=== PATIENT | male | born 1980 | race Two or more races ===

== ENCOUNTER 2020-06-14 11:28 | Inpatient (IN) | payer MEDICAID, OTHER ==
[~2020-06-14] VITALS: Ht 182.9 cm; Wt 88.5 kg
[~2020-06-14 11:28] MED LIST: KEPPRA; OXYCODONE
[2020-06-14] MEDS ORDERED: methylPREDNISolone SOD SUCC 125 MG/2 ML VL IV ONE (12:00)
[2020-06-14 14:03] LABS: Basophils # (auto) 0 10 ^3/uL (0-0.2); Basophils % (auto) 0.3 % (0.0-2.0); Eosinophils # (auto) 0.1 10 ^3/uL (0-0.8); Eosinophils % (auto) 0.5 % (0.0-7.0); Hematocrit 45.9 % (41.0-53.0); Hemoglobin 15.5 g/dL (13.5-17.5); Lymphocytes # (auto) 1.2 10 ^3/uL (0.4-5.4); Lymphocytes % (auto) 10.3 % (10.0-50.0); Mean Corpuscular Hemoglobin 32.7 pg (28.0-32.0); Mean Corpuscular Hgb Conc. 33.7 g/dL (32.0-36.0); Monocytes # (auto) 0.7 10 ^3/uL (0-1.3); Monocytes % (auto) 6.4 % (0.0-12.0); Neutrophils # (auto) 9.5 10 ^3/uL (1.6-8.6); Neutrophils % (auto) 82.5 % (37.0-80.0); Nucleated Red Blood Cells % 0.1 %; Platelet Count (auto) 169 10^3/uL (140-450); Red Blood Cells 4.73 10^6/uL (4.5-5.90); Red Cell Distribution Width 13.3 % (11.8-14.3); White Blood Cell 11.5 10^3/uL (4.4-10.8)
[2020-06-14 14:30] LABS: Alanine Aminotransferase 38 U/L (16-61); Albumin 4.1 g/dL (3.4-5.0); Anion Gap 5 (5-15); Aspartate Aminotransferase 20 U/L (15-37); BUN/Creatinine Ratio 22.8; Blood Urea Nitrogen 23 mg/dL (7-18); Calcium 9.1 mg/dL (8.5-10.1); Carbon Dioxide 32 mmol/L (21-32); Chloride 98 mmol/L (98-107); GFR African American 104 mL/min; GFR Non-African American 86 mL/min; Glucose 99 mg/dL (74-106); Lactate Dehydrogenase 400 U/L (87-241); Magnesium 2.6 mg/dL (1.6-2.6); Sodium 135 mmol/L (136-145)
[2020-06-14 14:44] LABS: Alkaline Phosphatase 87 U/L (45-117); Bilirubin, Total 0.5 mg/dL (0.2-1.0); Total Protein 8.5 g/dL (6.4-8.2)
[2020-06-14] MEDS ORDERED: ACETAMINOPHEN 500 MG TAB PO PRN (14:45)
[2020-06-14] MEDS ORDERED: LORazepam 0.5 MG TAB PO PRN (14:45)
[2020-06-14] MEDS ORDERED: DOCUSATE SOD 100 MG CAP PO PRN (14:45)
[2020-06-14] MEDS ORDERED: ONDANSETRON HCL 4 MG/2 ML VIAL IV PRN (14:45)
[2020-06-14] MEDS ORDERED: MORPHINE SULF INJ 2 MG/ML SYRINGE 1ML IV PRN (14:45)
[2020-06-14] MEDS ORDERED: TEMAZEPAM 15 MG CAP PO PRN (14:45)
[2020-06-14] MEDS ORDERED: INFLUENZA QUAD 2020-2021 0.5 ML SYRG IM ONE (15:26)
[2020-06-14] MEDS ORDERED: ALBUTEROL SULF HFA 90MCG INH 200DOSE IN SCH (22:00)
[2020-06-14] MEDS: DOXYCYCLINE 100 MG TAB/CAP PO SCH (23:21)
[2020-06-14] MEDS: SODIUM CHLORIDE 0.9% 1,000 ML IV SCH (23:21)
[2020-06-14] MEDS: HYDROcodone-ACET 5/325MG TAB PO PRN (23:23)
[2020-06-15] MEDS: SODIUM CHLORIDE 0.9% 1,000 ML IV SCH (07:25)
[2020-06-15] MEDS: HYDROcodone-ACET 5/325MG TAB PO PRN (08:34)
[2020-06-15] MEDS: DOXYCYCLINE 100 MG TAB/CAP PO SCH (09:27)
[2020-06-15] MEDS ORDERED: ASCORBIC ACID 1,000 MG TAB PO SCH (10:00)
[2020-06-15] MEDS ORDERED: ZINC SULFATE 220mg CAP or TAB PO SCH (10:00)
[2020-06-15] MEDS ORDERED: ENOXAPARIN SOD 40 MG/0.4 ML SYRINGE SC SCH (10:00)
[2020-06-15 10:37] LABS: Basophils # (auto) 0 10 ^3/uL (0-0.2); Basophils % (auto) 0.2 % (0.0-2.0); Eosinophils # (auto) 0 10 ^3/uL (0-0.8); Eosinophils % (auto) 0.3 % (0.0-7.0); Hematocrit 35.6 % (41.0-53.0); Lymphocytes # (auto) 1.8 10 ^3/uL (0.4-5.4); Lymphocytes % (auto) 19.1 % (10.0-50.0); Mean Corpuscular Hemoglobin 32.8 pg (28.0-32.0); Mean Corpuscular Hgb Conc. 33.7 g/dL (32.0-36.0); Mean Corpuscular Volume 97.2 fL (80.0-100.0); Monocytes # (auto) 1.4 10 ^3/uL (0-1.3); Monocytes % (auto) 15.5 % (0.0-12.0); Neutrophils % (auto) 64.9 % (37.0-80.0); Platelet Count (auto) 146 10^3/uL (140-450); Red Blood Cells 3.66 10^6/uL (4.5-5.90); White Blood Cell 9.2 10^3/uL (4.4-10.8)
[2020-06-15 11:45] VITALS: BP 102/62
[2020-06-15 12:18] LABS: BUN/Creatinine Ratio 38.5; Bilirubin, Total 0.3 mg/dL (0.2-1.0); Calcium 8.3 mg/dL (8.5-10.1); Potassium 3.8 mmol/L (3.5-5.1); Total Protein 6.4 g/dL (6.4-8.2)
[2020-06-15 14:03] LABS: Cholesterol 112 mg/dL (< 200)
[2020-06-15 14:04] LABS: HDL Cholesterol 48 mg/dL (40-59); LDL Cholesterol 63 mg/dL (< 100); Triglycerides 105 mg/dL (< 150)
== END 2020-06-15 14:02 | disposition home or self-care (01) | DRG 140 ==
LOC: ER 11:28 → EDBD 11:28 → TELE 14:49 → UNDODEPER 06-15 13:55 → TELE 06-15 14:08
PROVIDERS: ADMIT Hospitalist; ATTEND Internal Medicine
DX: J44.1 Chronic obstructive pulmonary disease with (acute) exacerbation (principal); J84.10 Pulmonary fibrosis, unspecified; C85.90 Non-Hodgkin lymphoma, unspecified, unspecified site; I11.0 Hypertensive heart disease with heart failure; I50.9 Heart failure, unspecified; Z20.828 Contact with and (suspected) exposure to other viral communicable diseases; J90 Pleural effusion, not elsewhere classified; G40.909 Epilepsy, unspecified, not intractable, without status epilepticus; J98.11 Atelectasis; Z88.6 Allergy status to analgesic agent; Z88.8 Allergy status to other drugs, medicaments and biological substances; Z80.9 Family history of malignant neoplasm, unspecified; Z83.3 Family history of diabetes mellitus
CPT/HCPCS: 36415; 71045; 80053; 80061; 82728; 83615; 83735; 83880; 84484; 85025; 85379; 86141; 87426; 96374; G0378

== ENCOUNTER 2020-06-19 17:54 | Inpatient (IN) | payer MEDICAID ==
[~2020-06-19] VITALS: Ht 172.7 cm; Wt 88.0 kg
[2020-06-19 22:08] LABS: Basophils # (auto) 0 10 ^3/uL (0-0.2); Basophils % (auto) 0.2 % (0.0-2.0); Eosinophils # (auto) 0 10 ^3/uL (0-0.8); Hematocrit 41.7 % (41.0-53.0); Hemoglobin 14.1 g/dL (13.5-17.5); Lymphocytes # (auto) 0.6 10 ^3/uL (0.4-5.4); Lymphocytes % (auto) 5.6 % (10.0-50.0); Mean Corpuscular Hemoglobin 32.7 pg (28.0-32.0); Mean Corpuscular Hgb Conc. 33.7 g/dL (32.0-36.0); Monocytes # (auto) 0.2 10 ^3/uL (0-1.3); Monocytes % (auto) 2.3 % (0.0-12.0); Neutrophils # (auto) 9.8 10 ^3/uL (1.6-8.6); Neutrophils % (auto) 91.9 % (37.0-80.0); Nucleated Red Blood Cells % 0.1 %; Platelet Count (auto) 224 10^3/uL (140-450); Red Cell Distribution Width 13.3 % (11.8-14.3); White Blood Cell 10.6 10^3/uL (4.4-10.8)
[2020-06-19 22:25] LABS: Alanine Aminotransferase 29 U/L (16-61); Albumin 3.7 g/dL (3.4-5.0); Anion Gap 7 (5-15); Blood Urea Nitrogen 26 mg/dL (7-18); Carbon Dioxide 28 mmol/L (21-32); Chloride 103 mmol/L (98-107); Glucose 145 mg/dL (74-106); Potassium 4.2 mmol/L (3.5-5.1); Sodium 138 mmol/L (136-145)
[2020-06-19 22:30] LABS: Alkaline Phosphatase 65 U/L (45-117); Aspartate Aminotransferase 13 U/L (15-37); BUN/Creatinine Ratio 32.9; Bilirubin, Total 0.4 mg/dL (0.2-1.0); GFR African American 138 mL/min; GFR Non-African American 114 mL/min; Total Protein 7.6 g/dL (6.4-8.2)
[2020-06-20] MEDS ORDERED: ACETAMINOPHEN 325 MG TAB PO PRN (01:45)
[2020-06-20] MEDS ORDERED: HYDROcodone-ACET 5/325MG TAB PO PRN (01:45)
[2020-06-20] MEDS ORDERED: ONDANSETRON HCL 4 MG/2 ML VIAL IV PRN (01:45)
[2020-06-20] MEDS ORDERED: DOCUSATE SOD 100 MG CAP PO PRN (01:45)
[2020-06-20] MEDS ORDERED: MORPHINE SULF INJ 2 MG/ML SYRINGE 1ML IV PRN (01:45)
[2020-06-20] MEDS ORDERED: NITROGLYCERIN 0.4 MG SL TAB SL PRN (01:45)
[2020-06-20 02:27] LABS: Basophils # (auto) 0 10 ^3/uL (0-0.2); Basophils % (auto) 0.1 % (0.0-2.0); Eosinophils # (auto) 0 10 ^3/uL (0-0.8); Hematocrit 41.7 % (41.0-53.0); Hemoglobin 13.8 g/dL (13.5-17.5); Lymphocytes # (auto) 1.4 10 ^3/uL (0.4-5.4); Lymphocytes % (auto) 12.2 % (10.0-50.0); Mean Corpuscular Hemoglobin 32.3 pg (28.0-32.0); Mean Corpuscular Volume 97.7 fL (80.0-100.0); Monocytes # (auto) 0.6 10 ^3/uL (0-1.3); Monocytes % (auto) 5.6 % (0.0-12.0); Neutrophils # (auto) 9.3 10 ^3/uL (1.6-8.6); Neutrophils % (auto) 82.1 % (37.0-80.0); Platelet Count (auto) 230 10^3/uL (140-450); Red Blood Cells 4.27 10^6/uL (4.5-5.90); Red Cell Distribution Width 13.6 % (11.8-14.3); White Blood Cell 11.3 10^3/uL (4.4-10.8)
[2020-06-20 02:42] LABS: Albumin 3.6 g/dL (3.4-5.0); BUN/Creatinine Ratio 28.6; Calcium 8.9 mg/dL (8.5-10.1); Potassium 4.1 mmol/L (3.5-5.1)
[2020-06-20 02:45] LABS: Bilirubin, Total 0.4 mg/dL (0.2-1.0); Total Protein 7.6 g/dL (6.4-8.2)
[2020-06-20] MEDS: SODIUM CHLOR 0.9% PF (SALINE LOCK) 10ML VIAL/SYR IV SCH ×2 (06:00→14:04)
--- NOTE | 2020-06-20 06:50 | NUR ---
Telemetry admit from ER SUNNY GARZA JR admitted to Telemetry unit after SBAR received. Patient oriented to ANDRA FARRELL, RN primary RN, unit, room, bed, and unit policies regarding patient care and visiting hours. Patient now on continuous telemetry monitoring, tele box # [id number] and telemetry reading on arrival to unit is NSR HR 70. Patient placed on bedside oxygen, weighed by bedscale and encouraged to call if they need something. All questions and concerns addressed, patient verbalized understanding.
--- NOTE | 2020-06-20 07:30 | NUR ---
SZ. PRECAUTIONS IN PLACE.
[2020-06-20 09:00] VITALS: BP 117/64
[2020-06-20] MEDS: ENOXAPARIN SOD 40 MG/0.4 ML SYRINGE SC SCH (11:25)
[2020-06-20] MEDS: ASCORBIC ACID 500 MG TAB PO SCH ×2 (11:25→22:52)
[2020-06-20] MEDS: FAMOTIDINE 20 MG TAB PO SCH ×2 (11:26→22:51)
[2020-06-20] MEDS: MULTIPLE VITAMIN TAB PO SCH (11:26)
[2020-06-20] MEDS: levETIRAcetam 500 MG TAB PO SCH ×2 (11:26→22:51)
[2020-06-20] MEDS: ZINC SULFATE 220mg CAP or TAB PO SCH (11:26)
[2020-06-20] MEDS ORDERED: predniSONE 20 MG TAB PO ONE (11:30)
[2020-06-20] MEDS ORDERED: MOME200A INH (11:46)
[2020-06-20] MEDS ORDERED: SACU1TAB PO (11:46)
[2020-06-20] MEDS ORDERED: PRED20TA2 PO (11:46)
[2020-06-20] MEDS ORDERED: MORP15TA PO (11:46)
[2020-06-20] MEDS ORDERED: METO25TA93 PO (11:46)
[2020-06-20] MEDS ORDERED: FAMO-12 PO (11:46)
[2020-06-20] MEDS ORDERED: QUET100T46 PO (11:46)
[2020-06-20] MEDS ORDERED: LEVAAER IN (11:46)
[2020-06-20] MEDS ORDERED: IVAB1TAB2 PO (11:46)
[2020-06-20] MEDS ORDERED: TIOTCAP IN (11:46)
[2020-06-20] MEDS ORDERED: DOCU100T15 PO (11:46)
[2020-06-20] MEDS ORDERED: MONT10TA34 PO (11:46)
[2020-06-20] MEDS ORDERED: DIPH50CA31 PO (11:46)
[2020-06-20] MEDS ORDERED: MIRT1TAB38 PO (11:46)
[2020-06-20] MEDS ORDERED: MYCO500T PO (11:46)
[2020-06-20] MEDS ORDERED: KEP500T PO (11:46)
[2020-06-20] MEDS ORDERED: PANT1INJ3 PO (11:46)
[2020-06-20] MEDS: MORPHINE SULFATE 4 MG/ML SYR/VIAL IV PRN ×2 (11:59→18:33)
[2020-06-20 12:44] VITALS: BP 111/66
[2020-06-20 12:50] VITALS: BP 103/60
[2020-06-20 16:39] VITALS: BP 109/65
--- NOTE | 2020-06-20 17:22 | NUR ---
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
--- NOTE | 2020-06-20 19:40 | NUR ---
Opening Shift Note Assumed care of patient. Patient is awake, alert, and oriented X 4. No S/S of distress noted. respirations are regular and non-labored. Pt is on 3 LPM NC. Denies pain at this time. Bed in lowest locked position, bed rails up X 2, call light is within reach. Pt instructed on POC and to call for assistance as needed. Will continue to monitor for changes Q1hr and PRN.
[2020-06-20 20:00] VITALS: BP 106/63
[2020-06-20 22:00] VITALS: BP 102/62
[2020-06-21 05:00] VITALS: BP 90/58
[2020-06-21] MEDS: SODIUM CHLOR 0.9% PF (SALINE LOCK) 10ML VIAL/SYR IV SCH ×3 (05:31→13:50)
[2020-06-21] MEDS: MORPHINE SULFATE 4 MG/ML SYR/VIAL IV PRN ×2 (05:37→14:36)
--- NOTE | 2020-06-21 07:30 | NUR ---
Opening Shift Note RECEIVED REPORT FROM NOC RN. Assumed care of patient, awake and alert. PATIENT ON OXYGEN AT 3 LPM VIA NASAL CANNULA WITH no S/S of distress/SOB or pain. BED IN LOWEST, LOCKED POSITION WITH SIDERAILS UP x2 AND CALL LIGHT WITHIN REACH. Instructed on POC and to call for assist PRN, will continue to monitor for changes Q1hr and PRN.
[2020-06-21 09:00] VITALS: BP 106/64
[2020-06-21 09:22] LABS: Hematocrit 39.9 % (41.0-53.0); Hemoglobin 13.3 g/dL (13.5-17.5); Mean Corpuscular Hemoglobin 32.4 pg (28.0-32.0); Mean Corpuscular Hgb Conc. 33.2 g/dL (32.0-36.0); Mean Corpuscular Volume 97.4 fL (80.0-100.0); Platelet Count (auto) 207 10^3/uL (140-450); Red Blood Cells 4.09 10^6/uL (4.5-5.90); Red Cell Distribution Width 13.3 % (11.8-14.3); White Blood Cell 9.3 10^3/uL (4.4-10.8)
[2020-06-21 09:25] LABS: Albumin 3.3 g/dL (3.4-5.0); BUN/Creatinine Ratio 42.3; Calcium 8.7 mg/dL (8.5-10.1); Potassium 3.5 mmol/L (3.5-5.1); Total Protein 6.9 g/dL (6.4-8.2)
[2020-06-21 09:27] LABS: Bilirubin, Total 0.4 mg/dL (0.2-1.0)
[2020-06-21 09:38] LABS: Band Neutrophils % (manual) 0; Basophils % (manual) 0 (0.0-2.0); Blast Cells 0; Eosinophils % (manual) 0 (0-7); Promyelocytes % 0; Reactive Lymphocytes 0
[2020-06-21] MEDS ORDERED: predniSONE 20 MG TAB PO SCH (10:00)
--- NOTE | 2020-06-21 10:19 | NUR ---
I faxed home oxygen order to [facility].
[2020-06-21 10:22] LABS: Lymphocytes % (manual) 20 (10.0-50.0); Metamyelocytes % 2; Monocytes % (manual) 11 (0-12); Myelocytes % 3
[2020-06-21] MEDS: ZINC SULFATE 220mg CAP or TAB PO SCH (10:30)
[2020-06-21] MEDS: FAMOTIDINE 20 MG TAB PO SCH (10:31)
[2020-06-21] MEDS: ASCORBIC ACID 500 MG TAB PO SCH (10:31)
[2020-06-21] MEDS: ENOXAPARIN SOD 40 MG/0.4 ML SYRINGE SC SCH (10:31)
[2020-06-21] MEDS: MULTIPLE VITAMIN TAB PO SCH (10:31)
[2020-06-21] MEDS: levETIRAcetam 500 MG TAB PO SCH (10:31)
--- NOTE | 2020-06-21 11:35 | NUR ---
I called [facility] [phone] and spoke with Kaye regarding home oxygen, she will have someone call me back.
--- NOTE | 2020-06-21 11:40 | NUR ---
I received a call from Shree at [facility]-he said they have received the order and he will call me back with an ETA.
--- NOTE | 2020-06-21 11:51 | NUR ---
I received a call from Shree at [facility] regarding patient's insurance-I let him know that patient has [id number] face sheet per his request. Per Shree they do cover oxygen for [facility] patients.
--- NOTE | 2020-06-21 13:21 | NUR ---
I called Shree at [facility] regarding home oxygen, he said they are unable to verify patient's insurance because the [facility] website is down. He is going to call patient's family to see if they have a credit card that can be put on file until insurance can be verified tomorrow-otherwise they can not provide the home oxygen today.
--- NOTE | 2020-06-21 13:51 | NUR ---
I received a call from Shree at [facility], portable oxygen tank will be here in about 45 minutes-I relayed this information to nurse Norma.
--- NOTE | 2020-06-21 16:07 | NUR ---
OXYGEN HAS BEEN DELIVERED TO BEDSIDE. IV REMOVED. TELE BOX 27 SENT BACK TO MONITOR TECHS.
--- NOTE | 2020-06-21 16:20 | NUR ---
Discharge instructions given as ordered. Encourage to follow up with PMD as instructed. All questions and concerns addressed. Patient verbalized understanding. Medication reconciliation form completed and copy given to patient. IV removed with catheter intact, pressure dressing applied. Telemetry unit returned to ICU. Patient taken to vehicle via wheelchair with all personal belongings, accompanied by staff. No distress noted at time of departure.
== END 2020-06-21 16:20 | disposition home or self-care (01) | DRG 142 ==
LOC: ER 17:54 → EDBD 17:54 → TELE 17:55 → TELE-CENTR 06-20 06:50
PROVIDERS: ADMIT Nurse Practitioner Family; ATTEND Nurse Practitioner Family
DX: J84.10 Pulmonary fibrosis, unspecified (principal); J96.11 Chronic respiratory failure with hypoxia; I11.0 Hypertensive heart disease with heart failure; I50.9 Heart failure, unspecified; J44.1 Chronic obstructive pulmonary disease with (acute) exacerbation; G40.909 Epilepsy, unspecified, not intractable, without status epilepticus; Z20.828 Contact with and (suspected) exposure to other viral communicable diseases; Z80.9 Family history of malignant neoplasm, unspecified; Z83.3 Family history of diabetes mellitus; Z94.81 Bone marrow transplant status; Z99.81 Dependence on supplemental oxygen
CPT/HCPCS: 36415; 36600; 71045; 71250; 80053; 82805; 83036; 84484; 85007; 85025; 85027; 87081; 87426; G0378

== ENCOUNTER → 2020-06-26 | Emergency (ER) | payer MEDICAID ==
[~2020-06-26] VITALS: Ht 175.3 cm; Wt 79.4 kg
[~2020-06-26] MED LIST changes: +DIPH50CA31 PO; +DOCU100T15 PO; +DOXYCYCLINE 100MG/250ML 250 ML IV ONE; +DexAMETHasone SOD PHOS 10MG/1ML VIAL INJ IV ONE; +FAMO-12 PO; +IVAB1TAB2 PO; +KEP500T PO; +LEVAAER IN; +METO25TA93 PO; +MIRT1TAB38 PO; +MOME200A INH; +MONT10TA34 PO; +MORP15TA PO; +MORPHINE SULF INJ 2 MG/ML SYRINGE 1ML IV ONE; +MORPHINE SULF INJ 2 MG/ML SYRINGE 1ML ONE; +MYCO500T PO; +ONDANSETRON HCL 4 MG/2 ML VIAL IV ONE; +ONDANSETRON HCL 4 MG/2 ML VIAL ONE; +PANT1INJ3 PO; +POTASSIUM CHLORIDE 60 MEQ, LIDOCAINE 1% (LOCAL ANESTH.) 6 ML in SODIUM CHL 0.9% 500 ML IV ONE; +PRED20TA2 PO; +QUET100T46 PO; +SACU1TAB PO; +TIOTCAP IN
--- NOTE | 2020-06-26 09:02 | NUR ---
Midline Placement: Patient educated on need for midline placement. All risks and benefits explained and all questions and concerns addresses prior to procedure. 20g/8 cm midline inserted via RIGHT BRACHIAL vein using Ultrasound. Sterile technique utilized. Blood return obtained from the single lumen and flushed easily with NS using proper technique. Midline secured with saline lock; biodisc and occlusive dressing applied. Primary RN LOVE notified. Midline lot # [id number]
[2020-06-26 09:13] LABS: Basophils # (auto) 0 10 ^3/uL (0-0.2); Basophils % (auto) 0.1 % (0.0-2.0); Eosinophils # (auto) 0 10 ^3/uL (0-0.8); Eosinophils % (auto) 0.2 % (0.0-7.0); Hematocrit 42.7 % (41.0-53.0); Lymphocytes # (auto) 1.5 10 ^3/uL (0.4-5.4); Mean Corpuscular Hgb Conc. 32.8 g/dL (32.0-36.0); Mean Corpuscular Volume 97.6 fL (80.0-100.0); Monocytes % (auto) 13.4 % (0.0-12.0); Neutrophils # (auto) 5.1 10 ^3/uL (1.6-8.6); Neutrophils % (auto) 66.3 % (37.0-80.0); Nucleated Red Blood Cells % 0.2 %; Platelet Count (auto) 164 10^3/uL (140-450); Red Blood Cells 4.37 10^6/uL (4.5-5.90); Red Cell Distribution Width 13.4 % (11.8-14.3); White Blood Cell 7.6 10^3/uL (4.4-10.8)
[2020-06-26 09:14] LABS: Albumin 3.4 g/dL (3.4-5.0); Anion Gap 8 (5-15); Blood Urea Nitrogen 25 mg/dL (7-18); Calcium 8.2 mg/dL (8.5-10.1); Carbon Dioxide 28 mmol/L (21-32); Chloride 99 mmol/L (98-107); Glucose 76 mg/dL (74-106); Sodium 135 mmol/L (136-145)
[2020-06-26 09:22] LABS: Alanine Aminotransferase 29 U/L (16-61); Alkaline Phosphatase 75 U/L (45-117); Aspartate Aminotransferase 32 U/L (15-37); BUN/Creatinine Ratio 28.7; Bilirubin, Total 0.3 mg/dL (0.2-1.0); GFR African American 124 mL/min; GFR Non-African American 102 mL/min; Total Protein 7.8 g/dL (6.4-8.2)
[2020-06-26 09:29] LABS: Potassium 2.8 mmol/L (3.5-5.1)
[2020-06-26 09:44] LABS: CRP High Sensitivity 14.3 mg/dL (< 0.3)
[2020-06-26 09:56] LABS: INR 1.08 (0.9-1.15); Partial Thromboplastin Time 25.2 sec (23.0-31.2)
[2020-06-26 11:20] VITALS: BP 115/58
== END | disposition home or self-care (01) ==
LOC: EDUNIT# 02:44 → EDBD 02:45 → ER 02:51
DX: J18.9 Pneumonia, unspecified organism (principal); I11.0 Hypertensive heart disease with heart failure; I50.9 Heart failure, unspecified; J44.9 Chronic obstructive pulmonary disease, unspecified; Z20.828 Contact with and (suspected) exposure to other viral communicable diseases
CPT/HCPCS: 36415; 71045; 80053; 82728; 83605; 83615; 83880; 84484; 85025; 85610; 85730; 86141; 87040; 87426; 93005; 96365; 96366; 96367; 96375; 99291; C9803; J1100; J2001; J2270; J2405; J3480; J3490; J7040; U0003